=== PATIENT | female | born 1970 | race Caucasian/White ===

== ENCOUNTER 2021-06-28 16:32 | Emergency (ER) | payer OTHER, BC, MEDICAID, SELFPAY ==
[2021-06-28 17:00] VITALS: BP 150/105; PULSE 69; RESP 18; TEMP 36.6; O2SAT 98; BMI 36.2
--- NOTE | 2021-06-28 17:16 | ED_ITS ---
HPI - Fall General: Chief Complaint: Fall Stated Complaint: Fell Time Seen by Provider: 06/28/21 17:16 History of Present Illness: 50-year-old female comes in today for injury secondary to a fall. Patient was walking her dogs and lost her footing causing her to fall catch herself with her outstretched right hand and hit the right forehead. Patient denied loss of consciousness. Patient reports no chronic medical problems. Patient denies use of any routine medications over-the-c ounter or supplements. complaint: fall Onset (ago): minute(s) Fall from: standing Place fall occurred: street Loss of consciousness: None Prolonged down time: no Symptoms prior to fall: none Context: tripped/slipped Location of injury: head Location of injury - extremities: Left: forearm Severity: mild Quality: aching Associated symptoms-after fall: Reports headache(s); Denies chest pain Review of Systems General: Reports: 10 or more systems reviewed and unremarkable except in HPI and below Const: Denies: fever(s) Card: Denies: chest pain Resp: Denies: dyspnea Musc: Reports: extremity pain Neuro: Reports: headache(s) Physical Exam Const: COMMON NORMALS: alert HENMT: COMMON NORMALS: Normal external nose present HEAD & SCALP: hematoma (Right forehead 4 cm) HEAD IMAGES: 1. Hematoma NOSE: Normal external nose present and Normal nares present MOUTH: Normal oral and palatal mucosa present THROAT: posterior oropharynx normal Neck/C-Spine: COMMON NORMALS: full ROM CERVICAL SPINE: Yes Paracervical muscle tenderness Resp: COMMON NORMALS: normal respiratory effort and clear to auscultation bilaterally AUSCULTATION: clear to auscultation bilaterally Cardio: COMMON NORMALS: regular rate RATE: regular rate Extremity: LEFT UPPER EXTREMITY: Yes wrist (Tenderness radial aspect of the wrist. Minimal swelling, decreased range o) Left wrist: Yes inspection, Yes palpation and Yes ROM Neuro: SENSORIUM/ORIENTATION: Yes alert Psych: COMMON NORMALS: cooperative Skin: COMMON NORMALS: no wounds Course Vital Signs: Vital signs: Vital Signs Temperature 97.8 F 06/28/21 17:00 Pulse Rate 69 06/28/21 17:00 Respiratory Rate 18 06/28/21 17:00 Blood Pressure 150/105 06/28/21 17:00 Pulse Oximetry 98 06/28/21 17:00 MDM - Fall Medical Decision Making 50-year-old female comes in for injury to the right wrist and head injury.On exam patient has tenderness to the radial area of the right wrist. Pulses are intact. Distal cap refill and sensation is intact. Patient has a hematoma to the right forehead. Vital signs are normal. No focal neural deficits are noted. Differential diagnosis includes intracranial bleeding, skull fracture, wrist fracture, sprain. CT of the head was negative. X-ray of the right wrist notes a distal radial bony defect that appears to be like an avulsion along the joint line that is new when compared to x-ray from 2019. Radiologist did read this as negative although I have a suspicion this is an acute fracture. We will place patient in a volar wrist splint with recommendations for follow-up with orthopedics. I reviewed this with patient who agreed to plan. Patient reported improvement in pain after splint application. Lab Data Radiology Impressions Head CT 06/28/21 17:26 IMPRESSION: No acute intracranial abnormality. Wrist X-Ray 06/28/21 17:26 IMPRESSION: No acute findings. Discharge Plan Discharge Patient Disposition: Home Clinical Impression: Head injury Qualifiers: Encounter type: initial encounter Qualified Code(s): S09.90XA - Unspecified injury of head, initial encounter Condition: Stable Prescriptions: No Action No Known Home Medications 0RF Discharge Orders: Discharge ED (Routine); Ordered 06/28/21 Ordered By: Jeremiah Munoz Discharge Diet: Usual diet Discharge Activity: Increase activity as tolerated Patient Instructions: Wrist Fracture in Adults (ED) Activity Restrictions/Additional Instructions: Activity as tolerated. Keep splint clean and dry. Case management will contact you regarding follow-up with orthopedics. 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
--- NOTE | 2021-06-28 17:26 | XRR_ITS ---
PROCEDURE INFORMATION: Exam: XR Left Wrist Exam date and time: 06/28/2021 5:48 PM Age: 50 years old Clinical indication: Pain; Wrist; Left; Additional info: Fall injury TECHNIQUE: Imaging protocol: XR Left wrist. Views: 3 or more views. COMPARISON: No relevant prior studies available. FINDINGS: Bones/joints: Osseous structures are intact. Negative for fracture. Joint spaces are preserved. Soft tissues: Normal. XR/XR wrist LT min 3V* [id number] IMPRESSION: No acute findings.
--- NOTE | 2021-06-28 17:26 | CTR_ITS ---
PROCEDURE INFORMATION: Exam: CT Head Without Contrast Exam date and time: 06/28/2021 6:42 PM Age: 50 years old Clinical indication: Injury or trauma; Blunt trauma (contusions or hematomas); Without loss of consciousness; Patient HX: Bump on R forehead forward fall w/o loc; Additional info: Fall head injury TECHNIQUE: Imaging protocol: Computed tomography of the head without contrast. Radiation optimization: All CT scans at this facility use at least one of these dose optimization techniques: automated exposure control; mA and/or kV adjustment per patient size (includes targeted exams where dose is matched to clinical indication); or iterative reconstruction. COMPARISON: No relevant prior studies available. RADIATION DOSE METRICS: Total DLP (mGy-cm): 759.28 FINDINGS: Brain: Normal. No hemorrhage. Unremarkable white matter. No mass effect. Cerebral ventricles: No ventriculomegaly. Paranasal sinuses: Visualized sinuses are unremarkable. No fluid levels. Mastoid air cells: Visualized mastoid air cells are well aerated. Bones/joints: Unremarkable. No acute fracture. Soft tissues: Right forehead contusion. CT/CT head wo con* [id number] IMPRESSION: No acute intracranial abnormality.
[2021-06-28] MEDS: HYDROcodone-acetaminophen 5-325 mg Tablet 1 TAB PO (19:08)
[2021-06-28 19:11] VITALS: BP 146/60; PULSE 60; RESP 16; O2SAT 98
--- NOTE | 2021-07-01 10:38 | DCPLANNER ---
Addendum entered by Joi Quevedo 07/24/21 20:12: Patient had a follow up appointment scheduled with ortho - patient did attend appointment. Addendum entered by Joi Quevedo 07/02/21 08:23: Patient has a follow up appointment scheduled for Friday, July 02, 2021 at 11:[address] Quiroz at ortho. Clinic will call patient with appointment information. Original Note: lead assistant manager had message to schedule a follow up appointment for patient with ortho. lead assistant manager sent patients information to the front staff at ortho. Patients information will be printed and reviewed. Clinic will call patient with appointment information.
== END 2021-06-28 19:12 | disposition home or self-care (01) ==
PROVIDERS: Emergency Provider Nurse Practitioner Family
DX: S00.83XA Contusion of other part of head, initial encounter (principal); S59.911A Unspecified injury of right forearm, initial encounter; W01.0XXA Fall on same level from slipping, tripping and stumbling without subsequent striking against object, initial encounter
CPT/HCPCS: 29125; 70450; 73110; 99283

== ENCOUNTER 2021-07-02 12:15 | Outpatient (CLI) | payer OTHER, BC, MEDICAID, SELFPAY | END 2021-07-02 12:16 | disposition home or self-care (01) | LOC: SPT 12:16 | PROVIDERS: Visit Provider Orthopaedic Surgery | DX: Z46.89 Encounter for fitting and adjustment of other specified devices (principal); S62.502D Fracture of unspecified phalanx of left thumb, subsequent encounter for fracture with routine healing; X58.XXXD Exposure to other specified factors, subsequent encounter | CPT/HCPCS: 97760; L3908 ==

== ENCOUNTER → 2021-07-10 09:16 | Outpatient (BNVA) | payer OTHER, BC, MEDICAID, SELFPAY | PROVIDERS: PCP Family Medicine; Visit Provider Orthopaedic Surgery | DX: M25.532 Pain in left wrist (principal) | CPT/HCPCS: 73110 ==

== ENCOUNTER → 2021-12-28 14:36 | Outpatient (BNVA) | payer OTHER, BC, MEDICAID, SELFPAY | PROVIDERS: PCP Family Medicine; Visit Provider Emergency Medicine | DX: J02.9 Acute pharyngitis, unspecified (principal); J01.00 Acute maxillary sinusitis, unspecified | CPT/HCPCS: 87071; 87880 ==

== ENCOUNTER 2022-04-18 14:35 | Inpatient (IN) | payer OTHER, BC, MEDICAID, SELFPAY ==
[2022-04-18] VITALS (8 sets, daily range): BP systolic 143–162; BP diastolic 84–95; PULSE 77–106; RESP 18–22; TEMP 36.3; O2SAT 98–100; BMI 35.3
--- NOTE | 2022-04-18 16:10 | USR_ITS ---
PROCEDURE INFORMATION: Exam: US Abdomen, Limited; Right Upper Quadrant Exam date and time: 04/18/2022 6:20 PM Age: 51 years old Clinical indication: Abdominal pain; Generalized; Additional info: Upper quadrant abdominal pain TECHNIQUE: Imaging protocol: Real time ultrasound of the abdomen with image documentation. Limited exam focused on the right upper quadrant. COMPARISON: CT abdomen pelvis w con* [id number] 04/18/2022 6:12 PM FINDINGS: Liver: Normal. No masses. Gallbladder: Cholelithiasis and a positive Daigle's sign without gallbladder wall thickening or pericholecystic fluid. Findings are not definitive for cholecystitis by ultrasound alone, nuclear medicine HIDA scan could further evaluate this. Biliary ducts: Normal. No stones. No dilation. Pancreas: Visualized pancreas is unremarkable. Right kidney: Normal. No mass. No hydronephrosis. US/US gall bladder [id number] IMPRESSION: Cholelithiasis and a positive Daigle's sign without gallbladder wall thickening or pericholecystic fluid. Findings are not definitive for cholecystitis by ultrasound alone, nuclear medicine HIDA scan could further evaluate this.
[2022-04-18] MEDS: sodium chloride 0.9% 1,000 ML 999 ML IV ×2 (16:28→23:17)
[2022-04-18] MEDS: ondansetron 2 mg/ML SDV 2 mL 4 MG IVP ×2 (16:29→20:00)
[2022-04-18] MEDS: morphine 4 mg/mL SDV 1 mL IVP ×2 (16:29→18:05)
--- NOTE | 2022-04-18 16:39 | ED_ITS ---
Documented by User: Moo Chavez DO 04/19/22 06:14 HPI - Abdominal Pain General: Chief Complaint: Abdominal Pain Stated Complaint: Upper abd pains Time Seen by Provider: 04/18/22 16:10 Source: patient Mode of arrival: ambulatory History of Present Illness: 51-year-old female presents emergency room with severe right upper quadrant pain with severe nausea vomiting that began around 2 AM. She ate corndogs last night. Few hours after this pain began is progressively worsened throughout the day she not had any hematemesis or coffee- ground emesis no fever sweats or chills no previous abdominal surgeries. MD elicited complaint: abdominal pain Onset (ago): hour(s) Pain Consistency: constant Location: RUQ Severity: severe Quality: cramping Radiation: R flank and back Exacerbating factors: nothing Relieving factors: nothing Associated Symptoms: Reports anorexia, bloating, GI cramping, nausea, poor appetite and vomiting; Denies belching, change in bowel habits, change in stool character, chills, coffee ground emesis, constipation, diarrhea, dyspepsia, dysuria, excessive flatus, fever(s), heartburn, hematochezia, hematuria, hematemesis, fecal incontinence, loose stools, melena and syncope Review of Systems Const: Denies: fever(s) or chills ENMT: Denies: throat pain, ear or mastoid pain, nasal discharge or nasal congestion Card: Denies: chest pain, palpitations, irregular heart rhythm or syncope Resp: Denies: dyspnea, productive cough or non-productive cough GI: Reports: abdominal pain, nausea, vomiting, bloating and GI cramping; Denies: hematemesis, coffee ground emesis, heartburn, diarrhea, constipation, belching, excessive flatus, fecal incontinence, change in bowel habits, change in stool character, hematochezia or melena : Denies: dysuria or hematuria Skin/Breast: Denies: rash or pruritus PFSH ED PFSH: Medical History Distal radial fracture Lumbar strain Surgical History Tubal ligation status Family History Denies family history of Cancer Social History Smoking and tobacco status: never smoked Physical Exam Const: COMMON NORMALS: no acute distress GENERAL APPEARANCE: cooperative and comfortable ORIENTATION/CONSCIOUSNESS: Yes awake, Yes oriented to person, Yes oriented to place and Yes oriented to time HENMT: COMMON NORMALS: normocephalic, atraumatic and hearing grossly normal bilaterally HEAD & SCALP: normocephalic and atraumatic Resp: COMMON NORMALS: normal respiratory effort, No retractions, No use of accessory muscles and clear to auscultation bilaterally AUSCULTATION: clear to auscultation bilaterally Cardio: COMMON NORMALS: regular rate, regular rhythm and No murmurs present (Cardio) RATE: regular rate RHYTHM: regular rhythm GI: COMMON NORMALS: No hepatosplenomegaly present AUSCULTATION: Yes normoactive bowel sounds PALPATION: Yes Tenderness to palpation present (GI) (Positive Daigel sign) Details: RUQ, No Guarding due to palpation present (GI) and Yes No hepatosplenomegaly present Extremity: COMMON NORMALS: normal to inspection, capillary refill normal, no clubbing, cyanosis or edema, no calf tenderness and no pedal edema Neuro: SENSORIUM/ORIENTATION: Yes oriented to person, Yes oriented to place and Yes oriented to time Skin: COMMON NORMALS: no rashes or lesions noted GENERAL SKIN EXAM: no rashes or lesions noted Course Vital Signs: Vital signs: Vital Signs Temperature 98.2 F 04/19/22 04:00 Pulse Rate 88 04/19/22 06:03 Respiratory Rate 18 04/19/22 04:00 Blood Pressure 135/81 04/19/22 04:00 Pulse Oximetry 98 04/19/22 06:03 Oxygen Delivery Me thod 04/19/22 06:03 Oxygen Flow Rate 2 04/19/22 04:00 MDM - Abdominal Pain Medical Decision Making Care signed out to Dr. Cobb at change of shift. See final notes for diagnosis and disposition. Patient presents with abdominal pain CT does show cholelithiasis no signs of cholecystitis on the ultrasound she continues to have pain here that is requiring multiple meds she has also had vomiting as well will admit to the hospitalist for intractable pain have spoke to the surgeon who was consulted. Medical Records I reviewed the patient's medical records. Lab Data I reviewed the patient's lab results. 04/18/22 16:31 04/18/22 16:31 Labs/Radiology: Radiology Impressions Gallbladder Ultrasound 04/18/22 16:10 IMPRESSION: Cholelithiasis and a positive Daigle's sign without gallbladder wall thickening or pericholecystic fluid. Findings are not definitive for cholecystitis by ultrasound alone, nuclear medicine HIDA scan could further evaluate this. Abdomen/Pelvis CT 04/18/22 17:44 IMPRESSION: 1. Cholelithiasis with gallbladder distension, ultrasound could further evaluate this. 2. Mildly prominent fluid in the small bowel without dilation may reflect an enteritis. 3. Fibroid uterus. Chest X-Ray 04/18/22 19:55 IMPRESSION: No acute findings. Laboratory Results WBC 7.4 10^3/uL (4.0-10.0) 04/18/22 16:31 RBC 5.32 10^6/uL (4.1-5.3) H 04/18/22 16:31 Hgb 13.4 g/dL (11.5-15.3) 04/18/22 16:31 Hct 42.4 % (37.0-47.0) 04/18/22 16:31 MCV 79.7 fl (81-99) L 04/18/22 16:31 MCH 25.2 pg (28.0-34.0) L 04/18/22 16:31 MCHC 31.6 g/dL (30.0-36.0) 04/18/22 16:31 RDW 13.3 % (12.1-15.1) 04/18/22 16:31 Plt Count 290 10^3/cmm (130-400) 04/18/22 16:31 MPV 11.0 fL (7.4-10.4) H 04/18/22 16:31 Neut % (Auto) 77.0 % 04/18/22 16:31 Lymph % (Auto) 14.9 % 04/18/22 16:31 [place] % (Auto) 6.5 % 04/18/22 16:31 Eos % (Auto) 0.9 % 04/18/22 16:31 Baso % (Auto) 0.3 % 04/18/22 16:31 Neut # (Auto) 5.73 10^3/uL (1.8-7.7) 04/18/22 16:31 Lymph # (Auto) 1.1 10^3/uL (0.8-4.8) 04/18/22 16:31 [place] # (Auto) 0.5 10^3/uL (0.2-0.9) 04/18/22 16:31 Eos # (Auto) 0.1 10^3/uL (0.0-0.8) 04/18/22 16:31 Baso # (Auto) 0.0 10^3/uL (0.0-0.1) 04/18/22 16:31 Nucleated RBC % (auto) 0 % 04/18/22 16:31 Nucleated RBCs # 0.0 /100WBC 04/18/22 16:31 Sodium 142 mmol/L (136-145) 04/18/22 16:31 Potassium 4.0 mmol/L (3.5-5.1) 04/18/22 16:31 Chloride 102 mmol/L (98-107) 04/18/22 16:31 Carbon Dioxide 27 mmol/L (22-29) 04/18/22 16:31 Anion Gap 17.0 (5-19) 04/18/22 16:31 BUN 12 mg/dL (6-20) 04/18/22 16:31 Creatinine 0.6 mg/dL (0.5-0.9) 04/18/22 16:31 GFR Calculation 105.4 mL/min (90-130) 04/18/22 16:31 Glucose 107 mg/dL (65-115) 04/18/22 16:31 Estimat Average Glucose 105 04/18/22 16:31 Hemoglobin A1c 5.3 % (4.0-6.0) 04/18/22 16:31 Calculated Osmolality 294 mOsm/kg (285-295) 04/18/22 16:31 Lactic Acid 0.6 mmol/L (0.5-2.2) 04/18/22 16:31 Calcium 9.8 mg/dL (8.5-10.5) 04/18/22 16:31 Total Bilirubin 0.4 mg/dL (0.15-1.2) 04/18/22 16:31 AST 13 U/L (0-32) 04/18/22 16:31 ALT 15 U/L (0-33) 04/18/22 16:31 Alkaline Phosphatase 116 U/L (35-105) H 04/18/22 16:31 Total Protein 7.4 g/dL (6.6-8.7) 04/18/22 16:31 Albumin 4.2 g/dL (3.5-5.2) 04/18/22 16:31 Globulin 3.2 g/dL (1.3-4.6) 04/18/22 16:31 Lipase 45 U/L (13-60) 04/18/22 16:31 Vitamin B12 416 pg/mL (232-1245) 04/18/22 16:31 Procalcitonin 0.03 ng/mL (0-0.5) 04/18/22 16:31 Urine Color Yellow (Yellow) 04/18/22 18:37 Urine Appearance Clear (CLEAR) 04/18/22 18:37 Urine pH 6.5 (5-7) 04/18/22 18:37 Ur Specific [place] 1.015 (1.005-1.030) 04/18/22 18:37 Urine Protein Neg (Negative) 04/18/22 18:37 Urine Glucose (UA) Norm (Normal) 04/18/22 18:37 Urine Ketones Negative (Negative) 04/18/22 18:37 Urine Blood Neg (Negative) 04/18/22 18:37 Urine Nitrate Negative (Negative) 04/18/22 18:37 Urine Bilirubin Neg (Negative) 04/18/22 18:37 Urine Urobilinogen Neg mg/dL (Negative) 04/18/22 18:37 Ur Leukocyte Esterase Negative (Negative) 04/18/22 18:37 Discharge Plan Discharge Patient Disposition: Admitted As Inpatient Admit Provider: Peg Sanchez Clinical Impression: Abdominal pain, Cholelithiasis, Vomiting Condition: Stable Coding Level of Care Code ED Communications Intern for [facility] Documented by User: Ann Cobb MD 04/18/22 20:51 HPI - Abdominal Pain General: Chief Complaint: Abdominal Pain Stated Complaint: Upper abd pains Time Seen by Provider: 04/18/22 16:10 PFSH ED PFSH: Medical History Distal radial fracture Lumbar strain Surgical History Tubal ligation status Family History Denies family history of Cancer Social History Smoking and tobacco status: never smoked Course Vital Signs: Vital signs: Vital Signs Temperature 98.2 F 04/19/22 04:00 Pulse Rate 88 04/19/22 06:03 Respiratory Rate 18 04/19/22 04:00 Blood Pressure 135/81 04/19/22 04:00 Pulse Oximetry 98 04/19/22 06:03 Oxygen Delivery Me thod 04/19/22 06:03 Oxygen Flow Rate 2 04/19/22 04:00 MDM - Abdominal Pain Medical Decision Making Patient presents with abdominal pain CT does show cholelithiasis no signs of cholecystitis on the ultrasound she continues to have pain here that is requiring multiple meds she has also had vomiting as well will admit to the hospitalist for intractable pain have spoke to the surgeon who was consulted. Lab Data 04/18/22 16:31 04/18/22 16:31 Labs/Radiology: Radiology Impressions Gallbladder Ultrasound 04/18/22 16:10 IMPRESSION: Cholelithiasis and a positive Daigle's sign without gallbladder wall thickening or pericholecystic fluid. Findings are not definitive for cholecystitis by ultrasound alone, nuclear medicine HIDA scan could further evaluate this. Abdomen/Pelvis CT 04/18/22 17:44 IMPRESSION: 1. Cholelithiasis with gallbladder distension, ultrasound could further evaluate this. 2. Mildly prominent fluid in the small bowel without dilation may reflect an enteritis. 3. Fibroid uterus. Chest X-Ray 04/18/22 19:55 IMPRESSION: No acute findings. Laboratory Results WBC 7.4 10^3/uL (4.0-10.0) 04/18/22 16:31 RBC 5.32 10^6/uL (4.1-5.3) H 04/18/22 16: Hgb 13.4 g/dL (11.5-15.3) 04/18/22 16: Hct 42.4 % (37.0-47.0) 04/18/22 16: MCV 79.7 fl (81-99) L 04/18/22 16: MCH 25.2 pg (28.0-34.0) L 04/18/22 16: MCHC 31.6 g/dL (30.0-36.0) 04/18/22 16: RDW 13.3 % (12.1-15.1) 04/18/22 16: Plt Count 290 10^3/cmm (130-400) 04/18/22 16: MPV 11.0 fL (7.4-10.4) H 04/18/22 16: Neut % (Auto) 77.0 % 04/18/22 16: Lymph % (Auto) 14.9 % 04/18/22 16:31 [place] % (Auto) 6.5 % 04/18/22 16: Eos % (Auto) 0.9 % 04/18/22 16: Baso % (Auto) 0.3 % 04/18/22 16: Neut # (Auto) 5.73 10^3/uL (1.8-7.7) 04/18/22 16: Lymph # (Auto) 1.1 10^3/uL (0.8-4.8) 04/18/22 16: [place] # (Auto) 0.5 10^3/uL (0.2-0.9) 04/18/22 16: Eos # (Auto) 0.1 10^3/uL (0.0-0.8) 04/18/22 16: Baso # (Auto) 0.0 10^3/uL (0.0-0.1) 04/18/22 16: Nucleated RBC % (auto) 0 % 04/18/22 16: Nucleated RBCs # 0.0 /100WBC 04/18/22 16: Sodium 142 mmol/L (136-145) 04/18/22 16: Potassium 4.0 mmol/L (3.5-5.1) 04/18/22 16:31 Chloride 102 mmol/L (98-107) 04/18/22 16:31 Carbon Dioxide 27 mmol/L (22-29) 04/18/22 16:31 Anion Gap 17.0 (5-19) 04/18/22 16:31 BUN 12 mg/dL (6-20) 04/18/22 16:31 Creatinine 0.6 mg/dL (0.5-0.9) 04/18/22 16:31 GFR Calculation 105.4 mL/min (90-130) 04/18/22 16:31 Glucose 107 mg/dL (65-115) 04/18/22 16:31 Estimat Average Glucose 105 04/18/22 16:31 Hemoglobin A1c 5.3 % (4.0-6.0) 04/18/22 16:31 Calculated Osmolality 294 mOsm/kg (285-295) 04/18/22 16:31 Lactic Acid 0.6 mmol/L (0.5-2.2) 04/18/22 16:31 Calcium 9.8 mg/dL (8.5-10.5) 04/18/22 16:31 Total Bilirubin 0.4 mg/dL (0.15-1.2) 04/18/22 16:31 AST 13 U/L (0-32) 04/18/22 16:31 ALT 15 U/L (0-33) 04/18/22 16:31 Alkaline Phosphatase 116 U/L (35-105) H 04/18/22 16:31 Total Protein 7.4 g/dL (6.6-8.7) 04/18/22 16:31 Albumin 4.2 g/dL (3.5-5.2) 04/18/22 16:31 Globulin 3.2 g/dL (1.3-4.6) 04/18/22 16:31 Lipase 45 U/L (13-60) 04/18/22 16:31 Vitamin B12 416 pg/mL (232-1245) 04/18/22 16:31 Procalcitonin 0.03 ng/mL (0-0.5) 04/18/22 16:31 Urine Color Yellow (Yellow) 04/18/22 18:37 Urine Appearance Clear (CLEAR) 04/18/22 18:37 Urine pH 6.5 (5-7) 04/18/22 18:37 Ur Specific [place] 1.015 (1.005-1.030) 04/18/22 18:37 Urine Protein Neg (Negative) 04/18/22 18:37 Urine Glucose (UA) Norm (Normal) 04/18/22 18:37 Urine Ketones Negative (Negative) 04/18/22 18:37 Urine Blood Neg (Negative) 04/18/22 18:37 Urine Nitrate Negative (Negative) 04/18/22 18:37 Urine Bilirubin Neg (Negative) 04/18/22 18:37 Urine Urobilinogen Neg mg/dL (Negative) 04/18/22 18:37 Ur Leukocyte Esterase Negative (Negative) 04/18/22 18:37 Discharge Plan Discharge Patient Disposition: Admitted As Inpatient Admit Provider: Peg Sanchez Clinical Impression: Abdominal pain, Cholelithiasis, Vomiting Condition: Stable Coding Level of Care Code ED Communications Intern for [facility]
[2022-04-18 17:07] LABS: Basophils % 0.3 %; Eosinophils # 0.1 10^3/uL (0.0-0.8); Eosinophils % 0.9 %; Hematocrit 42.4 % (37.0-47.0); Hemoglobin 13.4 g/dL (11.5-15.3); Lymphocytes # 1.1 10^3/uL (0.8-4.8); Lymphocytes % 14.9 %; Mean Corpuscular HGB Conc 31.6 g/dL (30.0-36.0); Mean Corpuscular Hemoglobin 25.2 pg (28.0-34.0); Mean Corpuscular Volume 79.7 fl (81-99); Monocytes # 0.5 10^3/uL (0.2-0.9); Monocytes % 6.5 %; Neutrophils # 5.73 10^3/uL (1.8-7.7); Nucleated Red Blood Cells % 0 %; Platelet Count 290 10^3/cmm (130-400); Red Blood Count 5.32 10^6/uL (4.1-5.3); Red Cell Distribution Width 13.3 % (12.1-15.1); White Blood Count 7.4 10^3/uL (4.0-10.0)
[2022-04-18 17:42] LABS: Lactic Sepsis W/Reflex 0.6 mmol/L (0.5-2.2)
[2022-04-18 17:43] LABS: Alanine Aminotransferase 15 U/L (0-33); Albumin Level 4.2 g/dL (3.5-5.2); Alkaline Phosphatase 116 U/L (35-105); Aspartate Amino Transferase 13 U/L (0-32); Blood Urea Nitrogen 12 mg/dL (6-20); Calcium 9.8 mg/dL (8.5-10.5); Carbon Dioxide 27 mmol/L (22-29); Chloride 102 mmol/L (98-107); Globulin 3.2 g/dL (1.3-4.6); Glomerular Filtration Rate 105.4 mL/min (90-130); Glucose 107 mg/dL (65-115); Lipase 45 U/L (13-60); Osmolality Calculated 294 mOsm/kg (285-295); Sodium 142 mmol/L (136-145); Total Bilirubin 0.4 mg/dL (0.15-1.2); Total Protein 7.4 g/dL (6.6-8.7)
--- NOTE | 2022-04-18 17:44 | CTR_ITS ---
PROCEDURE INFORMATION: Exam: CT Abdomen And Pelvis With Contrast Exam date and time: 04/18/2022 6:12 PM Age: 51 years old Clinical indication: Abdominal pain; Generalized; Prior surgery; Surgery date: 6+ months; Surgery type: Tubes tied x21 yrs; Patient HX: Abd pain since 2am wo trauma TECHNIQUE: Imaging protocol: Computed tomography of the abdomen and pelvis with contrast. Radiation optimization: All CT scans at this facility use at least one of these dose optimization techniques: automated exposure control; mA and/or kV adjustment per patient size (includes targeted exams where dose is matched to clinical indication); or iterative reconstruction. Contrast material: OMNIPAQUE 350; Contrast volume: 100 ml; Contrast route: INTRAVENOUS (IV); Other protocol: This patient has received [address] and 0 known cardiac nuclear medicine studies in the 12 months prior to the current study. COMPARISON: No relevant prior studies available. RADIATION DOSE METRICS: Total DLP (mGy-cm): 1017.65 FINDINGS: Liver: Normal. No mass. Gallbladder and bile ducts: Cholelithiasis with gallbladder distension, ultrasound could further evaluate this. Pancreas: Normal. No ductal dilation. Spleen: Normal. No splenomegaly. Adrenal glands: Normal. No mass. Kidneys and ureters: Normal. No hydronephrosis. Stomach and bowel: Mildly prominent fluid in the small bowel without dilation may reflect an enteritis. Appendix: No evidence of appendicitis. Intraperitoneal space: Unremarkable. No free air. No significant fluid collection. Vasculature: Unremarkable. No abdominal aortic aneurysm. Lymph nodes: Unremarkable. No enlarged lymph nodes. Urinary bladder: Unremarkable as visualized. Reproductive: Fibroid uterus. Bones/joints: Unremarkable. No acute fracture. Soft tissues: Unremarkable. CT/CT abdomen pelvis w con* [id number] IMPRESSION: 1. Cholelithiasis with gallbladder distension, ultrasound could further evaluate this. 2. Mildly prominent fluid in the small bowel without dilation may reflect an enteritis. 3. Fibroid uterus.
[2022-04-18] MEDS: iohexol 350 mg/mL 500 mL Btl (per mL) IV (18:14)
[2022-04-18 18:47] LABS: Add Urine Microscopic? NO; Charge for UA Resulting for Rev
[2022-04-18 18:52] LABS: Bilirubin Urine Neg (Negative); Blood Urine Neg (Negative); Glucose Urine UA Norm (Normal); Ketones Urine Negative (Negative); Leukocyte Esterase Urine Negative (Negative); Nitrate Urine Negative (Negative); Protein Urine Neg (Negative); Specific Gravity, Urine 1.015 (1.005-1.030); Urine Appearance Clear (CLEAR); Urine Color Yellow (Yellow); Urobilinogen Urine Neg (Negative); pH Urine 6.5 (5-7)
[2022-04-18] MEDS: HYDROmorphone 1 mg/mL INJ 1 mL IVP (19:13)
--- NOTE | 2022-04-18 19:55 | XRR_ITS ---
PROCEDURE INFORMATION: Exam: XR Chest Exam date and time: 04/18/2022 7:57 PM Age: 51 years old Clinical indication: Shortness of breath; Additional info: SOB TECHNIQUE: Imaging protocol: Radiologic exam of the chest. Views: 1 view. COMPARISON: CT abdomen pelvis w con* [id number] 04/18/2022 6:12 PM FINDINGS: Lungs: Unremarkable. No consolidation. Pleural spaces: Unremarkable. No pleural effusion. No pneumothorax. Heart/Mediastinum: Unremarkable. No cardiomegaly. Bones/joints: Unremarkable. XR/XR chest 1V portable [id number] IMPRESSION: No acute findings.
--- NOTE | 2022-04-18 21:14 | PM.HP ---
Providers/Chief Complaint Primary Care Provider: Elizabeth Strickland MD Chief Complaint: Upper abd pains History of Present Illness Taisha Curtis is a 51 year old female without significant past medical surgical history presented with chief complaint right upper quadrant pain which started around 2 AM yesterday night. Patient has had no emesis until she arrived in the ER, patient is stating that when Dr. Soto around right upper quadrant it made her nauseous and she started vomiting. She has not noticed any fever, her pain is excruciating to the point she started crying at home. She does not smoke or drink alcohol no history of cancer She started requiring oxygen because of multiple opioids which were given to control her pain, gallstones noted on her abdominal imaging positive Daigle sign General surgery consulted she will be kept n.p.o. Started on Zosyn, IV fluids Review of Systems Const: Reports: chills Eyes: Denies: change in vision ENMT: Denies: throat pain Card: Denies: chest pain Resp: Denies: dyspnea GI: Reports: abdominal pain, nausea and vomiting : Denies: oliguria Musc: Denies: neck pain Skin/Breast: Denies: rash Neuro: Denies: headache(s) Psych: Reports: anxiety Endo: Denies: polyuria Cy/Lymph: Denies: easy bruising All/Imm: Denies: urticaria Medications/Allergies Home Medications Medication Instructions Recorded Confirmed Last Taken Type naproxen sodium 220 mg capsule 440 mg PO Q12H PRN Pain 04/18/22 04/18/22 Unknown History (Aleve) Allergies Allergy/AdvReac Type Severity Reaction Status Date / Time No Known Allergies Allergy Verified 04/18/22 16:50 PFSH Acute PFSH: Medical History Distal radial fracture Lumbar strain Surgical History Tubal ligation status Family History Denies family history of Cancer Social History Smoking and tobacco status: never smoked Vitals/I&O/Wt Last Vital Signs Temp 97.4 F L 04/18/22 15:35 Pulse 77 04/18/22 15:35 Resp 22 H 04/18/22 19:13 BP 162/95 04/18/22 18:00 Pulse Ox 100 04/18/22 19:13 O2 Del Method 04/18/22 15:35 04/18/22 04/18/22 04/18/22 06:59 14:59 22:59 Intake Total 1000 / 1000 Balance 1000 / 1000 Weight last 48 hrs Weight 99.337 kg Physical Exam Narrative: Patient is clinically euvolemic abdomen soft however proceeding right upper quadrant pain positive Daigle sign Tachycardic, hypertensive Currently on 2 L nasal cannula Pleasant and cooperative No active emesis S1, S2 No audible stridor or wheezing GCS 15 Appears stated age Data 04/18/22 16:31 04/18/22 16:31 Micro: Microbiology 04/18/22 16:48 Blood Culture - Preliminary Blood SPECIMEN COLLECTED 04/18/22 16:48 Blood Culture - Preliminary Blood SPECIMEN COLLECTED A&P Assessment and plan (1) Abdominal pain: (2) Cholelithiasis: (3) Vomiting: Plan Cholelithiasis with positive Daigle sign Patient has biliary colic We will keep her n.p.o. No leukocytosis or fever Start Zosyn and IV fluids Give anti-inflammatory decrease intensity of pain Opioids in case ketorolac is not subsiding or pain General surgery has been consulted No signs of jaundice, no abnormal transaminases Bilirubin is normal No history of cancer Full code DVT prophylaxis SCDs avoid anticoagulation for possible intervention in the future Attestations Medical Necessity Statement*: Anticipating more than 2 midnights Time Spent in Patient Care: 35 Coding Level of Care Code Acute Code for Chg Fwd Diagnoses Abdominal pain R10.9 Cholelithiasis K80.20 Vomiting R11.10
[2022-04-18 21:53] LABS: Procalcitonin 0.03 ng/mL (0-0.5)
[2022-04-18] MEDS: promethazine 25 mg/mL SDV 1 mL IM (22:32)
[2022-04-18] MEDS: dicyclomine 20 mg Tablet PO (22:32)
--- NOTE | 2022-04-18 22:53 | P.CONIM_ITS ---
Providers/Reason For Consult Consulting Physician/Specialty*: Hospitalist Reason for Consult*: Biliary colic Attending Physician: Peg Sanchez MD Primary Care Provider: Elizabeth Strickland MD History of Present Illness History of Present Illness Taisha Curtis is a 51 year old female who presents with sudden onset of right upper quadrant abdominal pain. The pain started approximate 2 AM. The pain has been unrelenting. The patient states the pain has been crampy in character. She denies ever having pain like this before. Nothing that she can do makes the pain better or worse. Although movement does make the pain worse. The patient denies fever or chills. The patient has had nausea. The patient started vomiting once her the patient's pain has been relatively unrelenting in spite of the patient receiving multiple doses of morphine and Dilaudid. Review of Systems General: Reports: 10 or more systems reviewed and unremarkable except in HPI and below Medications/Allergies Home Medications Medication Instructions Recorded Confirmed Last Taken Type naproxen sodium 220 mg capsule 440 mg PO Q12H PRN Pain 04/18/22 04/18/22 Unknown History (Aleve) Allergies Allergy/AdvReac Type Severity Reaction Status Date / Time No Known Allergies Allergy Verified 04/18/22 16:50 PFSH Acute PFSH: Medical History Distal radial fracture Lumbar strain Surgical History Tubal ligation status Family History Denies family history of Cancer Social History Smoking and tobacco status: never smoked Vitals/I&O/Wt Last Vital Signs Temp 97.4 F L 04/18/22 15:35 Pulse 96 04/18/22 22:35 Resp 20 H 04/18/22 22:35 BP 143/88 04/18/22 22:35 Pulse Ox 98 04/18/22 22:35 O2 Del Method 04/18/22 22:35 O2 Flow Rate 2 04/18/22 22:35 04/18/22 04/18/22 04/18/22 06:59 14:59 22:59 Intake Total 1000 / 1000 Balance 1000 / 1000 Weight last 48 hrs Weight 219 lb Physical Exam Narrative: Generally: Currently somewhat sleepy. No acute distress HEENT: Normocephalic atraumatic Neck: Free range of motion and nontender. There is no masses. There is no thyromegaly. The patient's trachea is midline Lungs: Clear to auscultation and percussion Heart: Is regular rate and rhythm without murmurs. There is no S3 or S4. There were no rubs clicks or JVD noted Abdomen: Patient somewhat obese. The patient has right upper quadrant tenderness with a positive Daigle sign. There are no masses that I can appreciate. The patient does not have any hernias. Pelvis: Stable both AP and medial compression Extremities: There is no obvious deformities or point tenderness suggestive of a fracture. There is no clubbing cyanosis or edema. Neurologic: The patient is awake, alert, oriented x3. Patient's [place] Coma Scale is 15. The patient moves all 4 extremities without difficulty. The patient sensations intact to light touch throughout. Data 04/18/22 16:31 04/18/22 16:31 Micro: Microbiology 04/18/22 16:48 Blood Culture - Preliminary Blood SPECIMEN COLLECTED 04/18/22 16:48 Blood Culture - Preliminary Blood SPECIMEN COLLECTED A&P Assessment and plan (1) Abdominal pain: This patient most likely has biliary colic. Appreciate the hospitalist admitting him to their service. Will start the patient on some Zosyn in case she does have a component of acute cholecystitis. We will schedule the patient for laparoscopic cholecystectomy in the morning. The risk and benefits of the procedure been explained to the patient. The patient seems understand these ri sk and benefits would like to proceed. Coding Level of Care Code 41640 Medical Decision Making High Complexity Diagnoses Abdominal pain R10.9
[2022-04-18] MEDS: sodium chloride 0.9% 1,000 ML 75 ML IV (23:16)
[2022-04-18] MEDS: piperacillin-tazobactam 3.375 GM in sodium chloride 0.9% (plus) 50 ML IV (23:17)
[2022-04-18 23:57] LABS: Estmated Average Glucose 105; Hemoglobin A1C 5.3 % (4.0-6.0)
[2022-04-19] VITALS (18 sets, daily range): BP systolic 125–155; BP diastolic 60–89; PULSE 66–99; RESP 12–20; TEMP 36.3–37.2; O2SAT 92–100
[2022-04-19] MEDS: morphine 4 mg/mL SDV 1 mL 2 MG IVP (01:20)
[2022-04-19 02:04] LABS: Basophils % 0.1 %; Hematocrit 39.2 % (37.0-47.0); Hemoglobin 12.2 g/dL (11.5-15.3); Lymphocytes # 0.5 10^3/uL (0.8-4.8); Lymphocytes % 5.9 %; Mean Corpuscular HGB Conc 31.1 g/dL (30.0-36.0); Mean Corpuscular Hemoglobin 25.7 pg (28.0-34.0); Mean Corpuscular Volume 82.7 fl (81-99); Mean Platelet Volume 10.1 fL (7.4-10.4); Monocytes # 0.4 10^3/uL (0.2-0.9); Monocytes % 4.7 %; Neutrophils % 88.9 %; Nucleated Red Blood Cells % 0 %; Platelet Count 239 10^3/cmm (130-400); Red Blood Count 4.74 10^6/uL (4.1-5.3); Red Cell Distribution Width 13.5 % (12.1-15.1); White Blood Count 8.5 10^3/uL (4.0-10.0)
[2022-04-19] MEDS: ketorolac 30 mg/mL INJ 15 MG IVP (02:10)
[2022-04-19 02:32] LABS: Alanine Aminotransferase 39 U/L (0-33); Albumin Level 4.1 g/dL (3.5-5.2); Alkaline Phosphatase 120 U/L (35-105); Anion Gap 14.6 (5-19); Aspartate Amino Transferase 38 U/L (0-32); Blood Urea Nitrogen 10 mg/dL (6-20); C Reactive Protein 8.5 mg/L (0.0-4.9); Calcium 8.8 mg/dL (8.5-10.5); Carbon Dioxide 26 mmol/L (22-29); Chloride 104 mmol/L (98-107); Globulin 2.9 g/dL (1.3-4.6); Glomerular Filtration Rate 105.4 mL/min (90-130); Glucose 131 mg/dL (65-115); Magnesium 1.9 mg/dL (1.7-2.3); Osmolality Calculated 291 mOsm/kg (285-295); Phosphorus 4.5 mg/dL (2.5-4.5); Potassium 4.6 mmol/L (3.5-5.1); Sodium 140 mmol/L (136-145); Total Bilirubin 0.3 mg/dL (0.15-1.2)
[2022-04-19 02:59] LABS: Vitamin B12 416 pg/mL (232-1245)
[2022-04-19] MEDS: piperacillin-tazobactam 3.375 GM in sodium chloride 0.9% (plus) 50 ML IV ×3 (06:04→23:42)
[2022-04-19] MEDS: acetaminophen 500 mg Tablet PO (06:15)
--- NOTE | 2022-04-19 06:17 | PC.NURSE ---
Chlorhexidine Gluconate wipes to full body and clean gown at this time.
--- NOTE | 2022-04-19 09:00 | PM.PN ---
Subjective Subjective: Seen this morning. Patient to go for cholecystectomy today. Vitals/I&O/Wt Last Vital Signs Temp 97.8 F 04/19/22 08:00 Pulse 66 04/19/22 08:00 Resp 16 04/19/22 08:00 BP 145/86 04/19/22 08:00 Pulse Ox 98 04/19/22 08:00 O2 Del Method 04/19/22 06:03 O2 Flow Rate 2 04/19/22 04:00 04/18/22 04/19/22 04/19/22 22:59 06:59 14:59 Intake Total 1000 / 1000 1050 / 0 Balance 1000 / 1000 1050 / 0 Weight last 48 hrs Weight 99.337 kg Physical Exam Narrative: Patient is clinically euvolemic abdomen soft however proceeding right upper quadrant pain positive Daigle sign Currently on 2 L nasal cannula Pleasant and cooperative No active emesis S1, S2 No audible stridor or wheezing GCS 15 Appears stated age Data 04/19/22 01:13 04/19/22 01:13 Micro: Microbiology 04/18/22 16:48 Blood Culture - Preliminary Blood SPECIMEN COLLECTED 04/18/22 16:48 Blood Culture - Preliminary Blood SPECIMEN COLLECTED A&P Assessment and plan (1) Abdominal pain: (2) Cholelithiasis: (3) Vomiting: Plan Cholelithiasis with positive Daigle sign Patient has biliary colic We will keep her n.p.o. No leukocytosis or fever Continue Zosyn and IV fluids. Give anti-inflammatory decrease intensity of pain Opioids in case ketorolac is not subsiding or pain General surgery has been consulted No signs of jaundice, no abnormal transaminases Bilirubin is normal No history of cancer Keep patient n.p.o. Plan for cholecystectomy today. General surgery consulted and on board Full code DVT prophylaxis SCDs avoid anticoagulation for possible intervention in the future Attestations Medical Necessity Statement*: Anticipating more than 2 midnights Coding Level of Care Code Acute Code for Chg Fwd Diagnoses Abdominal pain R10.9 Cholelithiasis K80.20 Vomiting R11.10
--- NOTE | 2022-04-19 09:31 | P.PN_ITS ---
Subjective Subjective: Feels better this morning No significant stool in her ostomy bag Medications: Reviewed: Yes Vitals/I&O/Wt Last Vital Signs Temp 97.8 F 04/19/22 08:00 Pulse 66 04/19/22 08:00 Resp 16 04/19/22 08:00 BP 145/86 04/19/22 08:00 Pulse Ox 98 04/19/22 08:00 O2 Del Method 04/19/22 06:03 O2 Flow Rate 2 04/19/22 04:00 04/18/22 04/19/22 04/19/22 22:59 06:59 14:59 Intake Total 1000 / 1000 1050 / 2050 Balance 1000 / 1000 1050 / 2050 Weight last 48 hrs Weight 219 lb Physical Exam Narrative: General: No acute distress Lungs: Clear to auscultation Heart: Regular rate and rhythm Abdomen: Soft, somewhat distended with normal active bowel sounds. There is no stool in the patient's ostomy. The colostomy is viable Extremities: There is no clubbing cyanosis or edema Neurologic: Patient awake, alert, x3. The patient's [place] Coma Scale is 15. The patient moves all 4 extremities without difficulty. The patient sensations intact to light touch throughout. Data 04/19/22 01:13 04/19/22 01:13 Micro: Microbiology 04/18/22 16:48 Blood Culture - Preliminary Blood SPECIMEN COLLECTED 04/18/22 16:48 Blood Culture - Preliminary Blood SPECIMEN COLLECTED Attestation for Other Data: I personally reviewed and interpreted the following: (All labs have been reviewed) A&P Assessment and plan (1) Abdominal pain: We will schedule the patient for an examination under anesthesia. We will see whether we can dilate up the patient's ostomy. I believe this will help the patient. I believe this will produce bowel movements. The risk and benefits of this been explained to the patient the patient seems to understand these risk and benefits and would like to proceed. Attestations Medical Necessity Statement*: Operative intervention Coding Level of Care Code 62219 Medical Decision Making High Complexity Diagnoses Abdominal pain R10.9
[2022-04-19] MEDS: sodium chloride 0.9% 1,000 ML 30 ML IV (09:36)
[2022-04-19] MEDS: HYDROmorphone 1 mg/mL INJ 1 mL 0.5 MG IVP (09:47)
[2022-04-19] MEDS: ondansetron 2 mg/ML SDV 2 mL 4 MG IVP (09:52)
--- NOTE | 2022-04-19 10:00 | ANES.PREANE2 ---
Pre-Anesthetic Assessment Height/Weight: Height 1.68 m Weight 99.337 kg Temp Pulse Resp BP Pulse Ox O2 Del Method O2 Flow Rate 98.8 F 72 17 148/78 97 2 04/19/22 09:30 04/19/22 09:30 04/19/22 09:47 04/19/22 09:30 04/19/22 09:47 04/19/22 09:30 04/19/22 04:00 Operation Date: 04/19/22 11:50 Proposed Procedures p Laparoscopic Cholecystectomy(Not Applicable) - Ricardo Villeda MD Familial anesthetic complications: none Was Beta Andres taken within 24 hours: N/A Was Clonidine taken within 24 hours: N/A Last intake: Intake Last Liquid Date 04/19/22 Last Liquid Time 00:00 Last Solid Date 04/18/22 Last Solid Time 13:00 Social No alcohol and No tobacco Exam alert, oriented x 3, clear to auscultation bilaterally and regular rate & rhythm Airway Submandibular: within normal limits Cervical ROM: within normal limits Mallampati: Class II Dentition: chipped CV/HEM Hypertension Metabolic Morbid Obesity Anesthetic Plan ASA status: 2 Anesthesia: General Medications/Allergies Home Medications Medication Instructions Recorded Confirmed Last Taken Type naproxen sodium 220 mg capsule 440 mg PO Q12H PRN Pain 04/18/22 04/18/22 Unknown History (Aleve) Allergies Allergy/AdvReac Type Severity Reaction Status Date / Time No Known Allergies Allergy Verified 04/18/22 16:50 Current Medications Generic Name Dose Route Start Last Admin Trade Name Freq PRN Reason Stop Dose Admin Acetaminophen 500 mg 04/18/22 23:10 04/19/22 06:15 Acetaminophen 500 Mg Tablet PO 500 mg Q4H PRN Administration fever Hydromorphone HCl 0.5 mg 04/19/22 09:31 04/19/22 09:47 Hydromorphone 1 Mg/Ml Inj 1 Ml IVP 0.5 mg ONCE PRN Administration For preop pain/anxiety Piperacillin Sod/Tazobactam 50 mls @ 12.5 mls/hr 04/18/22 23:15 04/19/22 06:04 Sod 3.375 gm/ Sodium Chloride IV 12.5 mls/hr Q8H MICHAELA Administration Protocol Sodium Chloride 1,000 mls @ 75 mls/hr 04/18/22 23:10 04/18/22 23:16 Sodium Chloride 0.9% IV 75 mls/hr .[id number] MICHAELA Administration Sodium Chloride 1,000 mls @ 30 mls/hr 04/19/22 09:45 04/19/22 09:36 Sodium Chloride 0.9% IV 04/20/22 09:44 30 mls/hr .Q24H MICHAELA Administration Ketorolac Tromethamine 15 mg 04/18/22 23:10 04/19/22 02:10 Ketorolac 30 Mg/Ml Inj IVP 04/23/22 23:09 15 mg Q6H PRN Administration MODERATE PAIN Morphine Sulfate 2 mg 04/18/22 23:10 04/19/22 01:20 Morphine 4 Mg/Ml Sdv 1 Ml IVP 2 mg Q4H PRN Administration if ketorolac Failed Ondansetron HCl 4 mg 04/19/22 09:31 04/19/22 09:52 Ondansetron 2 Mg/Ml Sdv 2 Ml IVP 4 mg ONCE PRN Administration NAUSEA AND VOMITING PFSH Anesthesia Medical History Distal radial fracture Lumbar strain Surgical History Tubal ligation status Family History Denies family history of Cancer Social History Smoking and tobacco status: never smoked Data Anesthesia 04/19/22 01:13 04/19/22 01:13 Short CBC 04/18/22 04/19/22 Range/Units 16:31 01:13 WBC 7.4 8.5 (4.0-10.0) 10^3/uL Hgb 13.4 12.2 (11.5-15.3) g/dL Hct 42.4 39.2 (37.0-47.0) % MCV 79.7 L 82.7 (81-99) fl Plt Count 290 239 (130-400) 10^3/cmm Neut % (Auto) 77.0 88.9 % Neut # (Auto) 5.73 7.60 (1.8-7.7) 10^3/uL BMP 04/18/22 04/19/22 16:31 01:13 Sodium 142 140 Potassium 4.0 4.6 Chloride 102 104 Carbon Dioxide 27 26 BUN 12 10 Creatinine 0.6 0.6 Glucose 107 131 H Calcium 9.8 8.8 Liver Function 04/18/22 04/19/22 Range/Units 16:31 01:13 Total Bilirubin 0.4 0.3 (0.15-1.2) mg/dL AST 13 38 H (0-32) U/L ALT 15 39 H (0-33) U/L Alkaline Phosphatase 116 H 120 H (35-105) U/L Albumin 4.2 4.1 (3.5-5.2) g/dL Urine 04/18/22 Range/Units 18:37 Urine Color Yellow (Yellow) Urine Appearance Clear (CLEAR) Urine pH 6.5 (5-7) Ur Specific [place] 1.015 (1.005-1.030) Urine Protein Neg (Negative) Urine Glucose (UA) Norm (Normal) Urine Ketones Negative (Negative) Urine Nitrate Negative (Negative) Urine Bilirubin Neg (Negative) Ur Leukocyte Esterase Negative (Negative) Coags 04/19/22 01:13 C-Reactive Protein 8.5 H Microbiology 04/18/22 16:48 Blood Culture - Preliminary Blood SPECIMEN COLLECTED 04/18/22 16:48 Blood Culture - Preliminary Blood SPECIMEN COLLECTED Cardiac Studies: No Data to Display
--- NOTE | 2022-04-19 10:11 | PM.PN ---
Subjective Subjective: This patient is relatively uncomfortable overnight. The patient was complaining of some reflux. The patient states that she is ready for operative intervention today. Medications: Reviewed: Yes Vitals/I&O/Wt Last Vital Signs Temp 98.8 F 04/19/22 09:30 Pulse 72 04/19/22 09:30 Resp 17 04/19/22 09:47 BP 148/78 04/19/22 09:30 Pulse Ox 97 04/19/22 09:47 O2 Del Method 04/19/22 09:30 O2 Flow Rate 2 04/19/22 04:00 04/18/22 04/19/22 04/19/22 22:59 06:59 14:59 Intake Total 1000 / 1000 1050 / 0 Balance 1000 / 1000 1050 / 0 Weight last 48 hrs Weight 219 lb Physical Exam Narrative: Generally: Somewhat sedated Lungs: Clear to auscultation Heart: Regular rate and rhythm Abdomen: Somewhat tender in the right upper quadrant. Obese, positive bowel sounds. There is no rushes or tinkles. There are no hernias that I can appreciate Pelvis is stable both AP and medial compression Extremities: There is no clubbing cyanosis or edema Neurologic: The patient is awake, alert, oriented x3. The patient sensations intact to light touch throughout. Data 04/19/22 01:13 04/19/22 01:13 Micro: Microbiology 04/18/22 16:48 Blood Culture - Preliminary Blood SPECIMEN COLLECTED 04/18/22 16:48 Blood Culture - Preliminary Blood SPECIMEN COLLECTED A&P Assessment and plan (1) Acute cholecystitis: Our plan is to take the patient to the operating room today for laparoscopic cholecystectomy. Attestations Medical Necessity Statement*: Operative intervention Coding Level of Care Code 09115 Medical Decision Making High Complexity Diagnoses Acute cholecystitis K81.0
--- NOTE | 2022-04-19 12:33 | PM.OP ---
Operative Report Date of procedure: April 19, 2022 Pre-op diagnosis: Acute cholecystitis Post-op diagnosis: same Post-op findings: Inflamed gallbladder Procedure done: Laparoscopic cholecystectomy Specimens removed/disposition: Gallbladder Pathology: Gallbladder was sent to pathology Surgeon: Ricardo Villeda Anesthesia: General Estimated blood loss (mL): 50 IV fluids: Please see anesthesia record Complications: None noted Findings: Tense inflamed gallbladder. Gallbladder was removed without difficulty. Critical view was achieved Condition: stable Disposition: PACU Brief History: There is a 51-year-old female developed right upper quadrant pain with nausea and vomiting. CT and ultrasound were consistent with cholelithiasis and biliary colic. Procedure: Procedure in detail: The patient was brought to the operating room placed in supine position. After adequate general endotracheal anesthesia, the patient's abdomen was prepped and draped in usual sterile fashion. Following this a timeout was performed. The patient identifiers as well as the goals procedure were discussed and everyone in the room agreed. A towel clip was placed on each side of the umbilicus and lifted towards the ceiling. A curvilinear incision was made in the inferior aspect of the umbilicus with a skin knife. Hemostat was used to dissect down to the fascia. Following this a 12 mm port was placed through this wound into the abdomen. The scope was now placed through this port. There were no injuries noted. Now 3 standard subcostal ports were placed under direct vision. The right lateral subcostal port was used for a locking grasper this was placed on the dome of the gallbladder after the gallbladder was decompressed. The gallbladder was tense. Thankfully there were many adhesions. Now a grasper and [place] were placed in the abdomen through the 2 remaining working ports. The gallbladder was placed on stretch and there was a large stone in the patient's infundibulum. This made grabbing the gallbladder somewhat difficult. The gallbladder was somewhat friable. I was able to push the stone anteriorly which allowed me to get more distal on the gallbladder and able to get a good grasp on the gallbladder. Now I was able to dissect out the cystic duct and cystic artery from the surrounding tissues. Again these tissues were friable. The suction mica laminating machine feeder was used in order to aid with dissection. Now, the critical view was obtained. I was easily able to see only 2 structures going to the gallbladder. The cystic duct was now clipped with 2 clips closer to the common bile duct and 2 clips placed close to the gallbladder. Scissors were used to transect this. And then the cystic artery was clipped and transected. Now, the gallbladder was removed from the gallbladder fossa using the Bovie cautery. The gallbladder was placed in an Endobag. Some reason, the gallbladder popped out of the Endobag. It was half in and half out. Because the Endobag had already been deployed or trying to close the Endobag. The gallbladder was half in and half out. There was some spillage of bile. Another Endobag was deployed and the previous Endobag plus the gallbladder were placed in this new Endobag. This was sealed without difficulty. Now, the gallbladder fossa was carefully inspected. This was irrigated with copious amounts of normal saline. There was no bleeding from the gallbladder fossa. The clips on the cystic duct and cystic artery were seen and appeared to be in good position. I irrigated lateral to the liver and inferior. All bile that was seen was suctioned. Because the patient had a large stone in her gallbladder was difficult to get out through the medial subxiphoid port because of this this wound was extended. And then using a large Mya clamp was able to stretch this until I was able to get the Endobag out through this wound. The other 2 subcostal ports were removed under direct vision. There is no bleeding. The abdomen was allowed to deflate. The final port was removed. 0 Vicryl was used to close the fascia at both the subxiphoid and the umbilical port. These wounds were irrigated and then 4-0 Monocryl was used in a subcuticular fashion to close the skin. Dermabond was now placed. The patient was awakened and taken recovery room in stable condition. Following the procedure, look for family. There is no family present.
--- NOTE | 2022-04-19 14:01 | ANE.PACU2 ---
Inpatient post-anesthesia follow up: Airway intact: Yes Vital signs: Temperature 97.7 F Pulse Rate 88 Respiratory Rate 15 Blood Pressure 132/82 Pulse Oximetry 94 Oxygen Delivery Me thod Room Air Oxygen Flow Rate 6 Fraction of Inspir ed Oxygen Hydration adequate: Yes Nausea and vomiting: No Pain level: 3 Mental status: Baseline
[2022-04-19] MEDS: pantoprazole 40 mg SDV IVP (19:02)
[2022-04-20] VITALS: BP 119/81; PULSE 100; RESP 18; TEMP 36.9; O2SAT 96
[2022-04-20 04:00] VITALS: BP 126/72; PULSE 72; RESP 18; TEMP 36.8; O2SAT 97
[2022-04-20 04:37] LABS: Basophils % 0.2 %; Eosinophils % 0.2 %; Hematocrit 36.3 % (37.0-47.0); Hemoglobin 11.3 g/dL (11.5-15.3); Lymphocytes # 0.8 10^3/uL (0.8-4.8); Lymphocytes % 12.4 %; Mean Corpuscular HGB Conc 31.1 g/dL (30.0-36.0); Mean Corpuscular Hemoglobin 25.9 pg (28.0-34.0); Mean Corpuscular Volume 83.3 fl (81-99); Monocytes # 0.6 10^3/uL (0.2-0.9); Monocytes % 9.8 %; Neutrophils # 4.97 10^3/uL (1.8-7.7); Neutrophils % 77.2 %; Nucleated Red Blood Cells % 0 %; Platelet Count 231 10^3/cmm (130-400); Red Blood Count 4.36 10^6/uL (4.1-5.3); Red Cell Distribution Width 13.7 % (12.1-15.1); White Blood Count 6.4 10^3/uL (4.0-10.0)
[2022-04-20 04:54] LABS: Anion Gap 11.6 (5-19); Blood Urea Nitrogen 6 mg/dL (6-20); Calcium 8.7 mg/dL (8.5-10.5); Carbon Dioxide 26 mmol/L (22-29); Chloride 102 mmol/L (98-107); Glomerular Filtration Rate 88.2 mL/min (90-130); Glucose 109 mg/dL (65-115); Osmolality Calculated 280 mOsm/kg (285-295); Potassium 3.6 mmol/L (3.5-5.1); Sodium 136 mmol/L (136-145)
[2022-04-20] MEDS: piperacillin-tazobactam 3.375 GM in sodium chloride 0.9% (plus) 50 ML IV (06:22)
[2022-04-20 08:00] VITALS: BP 143/71; PULSE 78; RESP 18; TEMP 37.2; O2SAT 96
[2022-04-20] MEDS: pantoprazole 40 mg SDV IVP (08:49)
--- NOTE | 2022-04-20 11:28 | PM.PN ---
Subjective Subjective: Status post laparoscopic cholecystectomy Patient doing well. Patient tolerating full liquid diet. Medications: Reviewed: Yes Vitals/I&O/Wt Last Vital Signs Temp 99.0 F 04/20/22 08:00 Pulse 78 04/20/22 08:00 Resp 18 04/20/22 08:00 BP 143/71 04/20/22 08:00 Pulse Ox 96 04/20/22 08:00 O2 Del Method 04/20/22 08:00 O2 Flow Rate 6 04/19/22 12:56 04/19/22 04/20/22 04/20/22 22:59 06:59 14:59 Intake Total 1530 / 2630 50 / 2680 290 / 290 Balance 1530 / 2605 50 / 2655 290 / 290 Weight last 48 hrs Weight 219 lb Physical Exam Narrative: Generally: No acute distress Lungs: Clear to auscultation Heart: Regular rate and rhythm Abdomen: Soft, nontender, nondistended. The patient's incisions look good. The patient has positive bowel sounds. Data 04/20/22 04:28 04/20/22 04:28 Micro: Microbiology 04/18/22 16:48 Blood Culture - Preliminary Blood NEGATIVE TO DATE 04/18/22 16:48 Blood Culture - Preliminary Blood NEGATIVE TO DATE Attestation for Other Data: I personally reviewed and interpreted the following: (Labs of been reviewed ) A&P Assessment and plan (1) Cholelithiasis: This patient is doing well. (2) Acute cholecystitis: We will advance the patient a large amount of narcotics. We will advance the patient to a regular diet. I believe this patient be discharged home later on this afternoon if she tolerates a regular diet. The patient can be discharged home on acetaminophen and ibuprofen. The patient can follow with Dr. Avalos in 7 to 10 days. Attestations Medical Necessity Statement*: Probable discharge home Coding Level of Care Code Acute Code for [facility] Diagnoses Cholelithiasis K80.20 Acute cholecystitis K81.0
[2022-04-20 12:00] VITALS: BP 129/75; PULSE 76; RESP 18; TEMP 36.8; O2SAT 98
--- NOTE | 2022-04-20 14:49 | PM.DCS ---
Discharge Providers Date of Admission: 04/18/22 20:07 Date of Discharge: April 20, 2022 Attending Provider at Admission: Peg Sanchez MD Attending Provider at Discharge: Sara Jaquez MD Primary Care Provider: Elizabeth Strickland MD Diagnoses at Discharge Discharge Diagnosis (1) Cholelithiasis: Status: Acute (2) Acute cholecystitis: Status: Acute Reason for Visit Reason for Visit: Upper abd pains Hospital Course Hospital Course 51 year old female without significant past medical surgical history presented with chief complaint right upper quadrant pain. She was diagnosed with acute cholecystitis. She underwent laparoscopic cholecystectomy on April 19, 2022. Postprocedure was uneventful. She was evaluated by surgery today, her diet was advanced to a regular diet which she tolerated She is being discharged today and in a stable condition with recommendations to follow-up with surgery as outpatient in 7 to 10 days. Physical Exam Narrative: General: No acute distress, AO x3 HEENT: PERRLA, pupils bilaterally equal and reactive, pallors not present Chest: Normal vesicular breath sounds, no added sounds, equal good air entry bilaterally CVS: S1-S2 regular, no murmurs, no tachycardia, no gallops, no rubs Abdomen: Soft, nontender, laparotomy incision site without any discharge or cellulitic changes. Neuro: No focal deficits, no facial deformity, AO x3, power 5/5 in all limbs Discharge Data Studies Completed and Pending Completed Studies During Hospitalization Category Date Time Status CT abdomen pelvis w con* [id number] Stat Cat Scan 04/18/22 17:44 Completed CXRP [XR chest 1V portable [id number]] Stat Exams 04/18/22 19:55 Completed US gall bladder [id number] Stat Ultrasound 04/18/22 16:10 Completed Pending at discharge Category Date Time Status Blood Culture Stat Lab 04/18/22 16:48 Results Pathology: Surgical [PTH] Routine Pth 04/19/22 12:50 Ordered Radiology Impressions Gallbladder Ultrasound 04/18/22 16:10 IMPRESSION: Cholelithiasis and a positive Daigle's sign without gallbladder wall thickening or pericholecystic fluid. Findings are not definitive for cholecystitis by ultrasound alone, nuclear medicine HIDA scan could further evaluate this. Abdomen/Pelvis CT 04/18/22 17:44 IMPRESSION: 1. Cholelithiasis with gallbladder distension, ultrasound could further evaluate this. 2. Mildly prominent fluid in the small bowel without dilation may reflect an enteritis. 3. Fibroid uterus. Chest X-Ray 04/18/22 19:55 IMPRESSION: No acute findings. Laboratory Results WBC 6.4 10^3/uL (4.0-10.0) 04/20/22 04:28 RBC 4.36 10^6/uL (4.1-5.3) 04/20/22 04:28 Hgb 11.3 g/dL (11.5-15.3) L 04/20/22 04:28 Hct 36.3 % (37.0-47.0) L 04/20/22 04:28 MCV 83.3 fl (81-99) 04/20/22 04:28 MCH 25.9 pg (28.0-34.0) L 04/20/22 04:28 MCHC 31.1 g/dL (30.0-36.0) 04/20/22 04:28 RDW 13.7 % (12.1-15.1) 04/20/22 04:28 Plt Count 231 10^3/cmm (130-400) 04/20/22 04:28 MPV 10.0 fL (7.4-10.4) 04/20/22 04:28 Neut % (Auto) 77.2 % 04/20/22 04:28 Lymph % (Auto) 12.4 % 04/20/22 04:28 [place] % (Auto) 9.8 % 04/20/22 04:28 Eos % (Auto) 0.2 % 04/20/22 04:28 Baso % (Auto) 0.2 % 04/20/22 04:28 Neut # (Auto) 4.97 10^3/uL (1.8-7.7) 04/20/22 04:28 Lymph # (Auto) 0.8 10^3/uL (0.8-4.8) 04/20/22 04:28 [place] # (Auto) 0.6 10^3/uL (0.2-0.9) 04/20/22 04:28 Eos # (Auto) 0.0 10^3/uL (0.0-0.8) 04/20/22 04:28 Baso # (Auto) 0.0 10^3/uL (0.0-0.1) 04/20/22 04:28 Nucleated RBC % (auto) 0 % 04/20/22 04:28 Nucleated RBCs # 0.0 /100WBC 04/20/22 04:28 Sodium 136 mmol/L (136-145) 04/20/22 04:28 Potassium 3.6 mmol/L (3.5-5.1) 04/20/22 04:28 Chloride 102 mmol/L (98-107) 04/20/22 04:28 Carbon Dioxide 26 mmol/L (22-29) 04/20/22 04:28 Anion Gap 11.6 (5-19) 04/20/22 04:28 BUN 6 mg/dL (6-20) 04/20/22 04:28 Creatinine 0.7 mg/dL (0.5-0.9) 04/20/22 04:28 GFR Calculation 88.2 mL/min (90-130) L 04/20/22 04:28 Glucose 109 mg/dL (65-115) 04/20/22 04:28 Estimat Average Glucose 105 04/18/22 16:31 Hemoglobin A1c 5.3 % (4.0-6.0) 04/18/22 16:31 Calculated Osmolality 280 mOsm/kg (285-295) L 04/20/22 04:28 Lactic Acid 0.6 mmol/L (0.5-2.2) 04/18/22 16:31 Calcium 8.7 mg/dL (8.5-10.5) 04/20/22 04:28 Phosphorus 4.5 mg/dL (2.5-4.5) 04/19/22 01:13 Magnesium 1.9 mg/dL (1.7-2.3) 04/19/22 01:13 Total Bilirubin 0.3 mg/dL (0.15-1.2) 04/19/22 01:13 AST 38 U/L (0-32) H 04/19/22 01:13 ALT 39 U/L (0-33) H 04/19/22 01:13 Alkaline Phosphatase 120 U/L (35-105) H 04/19/22 01:13 C-Reactive Protein 8.5 mg/L (0.0-4.9) H 04/19/22 01:13 Total Protein 7.0 g/dL (6.6-8.7) 04/19/22 01:13 Albumin 4.1 g/dL (3.5-5.2) 04/19/22 01:13 Globulin 2.9 g/dL (1.3-4.6) 04/19/22 01:13 Lipase 45 U/L (13-60) 04/18/22 16:31 Vitamin B12 416 pg/mL (232-1245) 04/18/22 16:31 Procalcitonin 0.03 ng/mL (0-0.5) 04/18/22 16:31 Urine Color Yellow (Yellow) 04/18/22 18:37 Urine Appearance Clear (CLEAR) 04/18/22 18:37 Urine pH 6.5 (5-7) 04/18/22 18:37 Ur Specific [place] 1.015 (1.005-1.030) 04/18/22 18:37 Urine Protein Neg (Negative) 04/18/22 18:37 Urine Glucose (UA) Norm (Normal) 04/18/22 18:37 Urine Ketones Negative (Negative) 04/18/22 18:37 Urine Blood Neg (Negative) 04/18/22 18:37 Urine Nitrate Negative (Negative) 04/18/22 18:37 Urine Bilirubin Neg (Negative) 04/18/22 18:37 Urine Urobilinogen Neg mg/dL (Negative) 04/18/22 18:37 Ur Leukocyte Esterase Negative (Negative) 04/18/22 18:37 Vitals Last Vital Signs Temp 98.2 F 04/20/22 12:00 Pulse 76 04/20/22 12:00 Resp 18 04/20/22 12:00 BP 129/75 04/20/22 12:00 Pulse Ox 98 04/20/22 12:00 O2 Del Method 04/20/22 12:00 O2 Flow Rate 6 04/19/22 12:56 Discharge Plan Discharge Patient Disposition: Home Condition: Stable Prescriptions: New oxycodone 5 mg Tablet 5 mg PO Q8H PRN (Reason: Moderate Pain) 3 Days Qty: 9 0RF acetaminophen 500 mg Tablet 500 mg PO Q4H PRN (Reason: fever) Qty: 0 0RF ibuprofen 600 mg tablet 600 mg PO Q8H PRN (Reason: fever or pain) Qty: 10 0RF pantoprazole [Protonix] 40 mg tablet,delayed release (DR/EC) 40 mg PO DAILY 10 Days Qty: 20 0RF Discontinued Aleve 220 mg Capsule 440 mg PO Q12H PRN (Reason: Pain) Discharge Orders: Discharge Order (Routine); Ordered 04/20/22 Ordered By: Sara Jaquez Referrals: Elizabeth Strickland MD [Primary Care Provider] - Lalit Avalos DO [Physician] - 7-10 days Discharge Diet: As Directed, Low Cholesterol and Low Fat Discharge Activity: Resume usual activity Patient Instructions: Opioid Safety, Post Anesthesia Care Discharge Attestations Time Spent in Discharge Care*: greater than 30 min Quality Metrics Clinical Quality Measures [ No reported AMI, CVA or VTE this stay] Coding Level of Care Code Acute Code for [facility] Fwd Diagnoses Cholelithiasis K80.20 Acute cholecystitis K81.0
[2022-04-20 16:00] VITALS: BP 116/69; PULSE 82; RESP 18; TEMP 36.9; O2SAT 95
[2022-04-20 16:23] VITALS: BP 116/69; PULSE 82; RESP 18; TEMP 36.9; O2SAT 95
== END 2022-04-20 16:24 | disposition home or self-care (01) | DRG 419 ==
LOC: ER 20:51 → MEDSURG 21:29
PROVIDERS: Family Medicine; Internal Medicine; Surgery Surgical Critical Care; Admitting Provider Internal Medicine; Emergency Provider Emergency Medicine; PCP Family Medicine; Visit Provider Student in an Organized Health Care Education/Training Program
PROC: 0FT44ZZ Resection of Gallbladder, Percutaneous Endoscopic Approach (ICD-10-PCS; CPT 47562; principal; 2022-04-19 11:30)
DX: K80.00 Calculus of gallbladder with acute cholecystitis without obstruction (principal)
CPT/HCPCS: 12345; 36415; 71045; 74177; 76705; 80048; 80053; 81003; 82607; 83036; 83605; 83690; 83735; 84100; 84145; 85025; 86140; 87040; 88304; 94664; 96372; 96374; 96375; 96376; 99233; 99255; 99285; C9113; J1100; J1170; J1200; J1885; J2270; J2370; J2405; J2543; J2550; J2704; J2710; J3010; J3490; J7030; J7050; Q9967

== ENCOUNTER → 2022-05-25 10:35 | Outpatient (BNVA) | payer OTHER, BC, MEDICAID, SELFPAY | PROVIDERS: PCP Family Medicine; Visit Provider Nurse Practitioner | DX: J02.9 Acute pharyngitis, unspecified (principal) | CPT/HCPCS: 87071; 87880 ==